=== PATIENT | female | born 1995 | race Caucasian/White ===

== ENCOUNTER 2025-07-26 18:41 | Inpatient (IN) ==
[2025-07-26] MEDS ORDERED: LIDOCAINE 1% LOCAL 20 ML VIAL INFIL PRN (20:40)
[2025-07-26] MEDS ORDERED: CALCIUM CARBONATE 500 MG CHEWABLE TAB PO PRN (20:40)
--- NOTE | 2025-07-26 20:40 | History & Physical Report ---
Date of Service July 26, 2025 Assessment & Plan (1) Normal labor: Present on Admission?: Yes (2) 39 weeks gestation of : Present on Admission?: Yes Plan Patient is a 30yo who is getting admitted for labor. Cervical change made to 4/75/-2 after 1 hour recheck; contractions getting more painful FHT reassuring Continue position changes Discussed AROM and pitocin augmentation if needed, deferred at this time Epidural PRN-pt declines for now GBS neg, Rh pos, RI Anticipate History of Present Illness Chief Complaint: Contractions Primary Care Provider: NATASHA Burr Patient is a 30yo at 39w3d who presents with contractions. [place] contractions since yesterday but got progressively closer together and stronger today. Feels them every 2-3 minutes. +FM. Denies LOF, VB. Denies complications with -just got Hep B vaccine series completed. Allergies Allergy/AdvReac Type Severity Reaction Status Date / Time No Known Allergies Allergy Verified 07/24/25 15:55 Home Medications Medication Instructions Recorded Confirmed Type loratadine 10 mg tablet (Claritin) 10 mg PO DAILY 02/27/24 07/26/25 History prenat.vits,fiordaliza,[id number] tab PO 12/19/24 07/24/25 History famotidine 20 mg tablet (Pepcid) 20 mg PO BID 07/10/25 07/26/25 History Patient History Surgical History No pertinent past surgical history Family History Grandfather (Maternal) Cancer Rheumatoid arthritis Grandfather (Paternal) Cancer Grandmother (Maternal) Diabetes Denies family history of Sudden SIDS (sudden infant syndrome) Ovarian cancer Prostate cancer Deep vein thrombosis Osteoporosis Coronary heart disease Dyslipidemia Cerebral aneurysm Alzheimer disease Bipolar disorder Clotting disorder Crohn's disease Dementia Depression Heart disease Kidney disease Myocardial infarction Osteoarthritis Breast cancer Schizophrenia Congenital kidney disease Gestational diabetes Lung cancer COPD (chronic obstructive pulmonary disease) Colorectal cancer Pulmonary embolism Lung disease Hypertension Ulcerative colitis Colonic polyp Stroke Asthma Cystic kidney disease Social History Smoking Status: Never smoker Second Hand Exposure: No; Hx Alcohol Use: No Hx Substance Use: No Preferred Language: Czech Communication Ability: Effective Visual Impairment: No Limitations Hearing Ability: Normal 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 Beliefs That Will Affect Care: None marital status: marital status details: aida (33) [phone] Current Living Situation: Spouse Current Living Situation Comment: lives with spouse, 2 cats, spouse to change litter current occupational status: employed current occupation: OT at [employer] How many Children do You have: 0 Other Information That Helps Us Care for You: No other: vocal disfunction Feels Safe at Home: Yes Safety Concerns: Feels Safe At This Time Childhood Exposure to Second-Hand Smoke: No Diet: regular caffeine: Yes during the past year weight has: remained stable Dental Care, Regularly: Yes Physical Activity Frequency: Daily Seatbelt Use: always Sunscreen Use: Yes Do you think of yourself as: straight/heterosexual Sexual Activity: has been sexually active within the last 12 months Gender Identity: Female Assistive Devices: None Review of Systems All systems reviewed & are unremarkable except as noted in HPI & below Physical Exam Constitutional: WD/WN, vitals as above Respiratory: normal respiratory effort Psychiatric: Orientation: alert and oriented x 3 Genitourinary: OB Exam Monitor Tracing: + external FHT monitor used, + external uterine monitor used (cxns q2-3min) and + category I (120s/mod kirby/+accels/no decels) RN exam- changed from 3/70/-2 to 4/75/-2 after 1 hour recheck Results & Data Vital Signs (Past 12 Hours) Vital Signs Temp Pulse Resp BP 07/26/25 20:23 36.4 C L 07/26/25 19:01 18 07/26/25 18:59 76 123/79 Coding Level of Care Code None Diagnoses Normal labor O80; Z37.9 39 weeks gestation of Z3A.39
[2025-07-26 22:01] LABS: Hematocrit (blood only) 32.3 % (37.0-47.0); Hemoglobin 11.4 g/dL (12.0-16.0); Mean Corpuscular Hemoglobin 30.8 pg (25.0-34.0); Mean Corpuscular Volume 87.3 fL (80.0-100.0); Platelet Count 266 K/uL (130-400); RDW Standard Deviation 38.5 fL (36.4-46.3); Red Blood Count 3.70 M/uL (4.20-5.40); White Blood Count 12.30 K/ul (4.8-10.8)
[2025-07-26] MEDS: LACTATED RINGER'S 1,000 ML IV PRN (22:50)
[2025-07-26] MEDS ORDERED: diphenhydrAMINE 50 MG/ML VIAL IV PRN (23:06)
[2025-07-26] MEDS ORDERED: ONDANSETRON INJ 2 MG/ML 2 ML VIAL IV PRN (23:06)
[2025-07-26] MEDS ORDERED: NALOXONE HCL 0.4 MG/1 ML VIAL/CARP IV PRN (23:06)
[2025-07-26] MEDS ORDERED: BUPIVACAINE 0.25% PF 30 ML VIAL EPI PRN (23:06)
[2025-07-26] MEDS ORDERED: NALOXONE HCL 1 MG in SODIUM CHLORIDE 0.9% 1,000 ML IV PRN (23:06)
[2025-07-26] MEDS ORDERED: NALBUPHINE HCL INJ 10 MG/ML AMP IV PRN (23:06)
[2025-07-26] MEDS ORDERED: LIDOCAINE 2% MPF LOCAL 5 ML VIAL EPI PRN (23:06)
[2025-07-26] MEDS ORDERED: fentANYL 2 MCG/ML BUPIVacaine 0.125%-NSS 100ML BAG EPI PRN (23:06)
[2025-07-26] MEDS ORDERED: ROPIVACAINE 0.5% PF 5 MG/ML 20 ML VIAL EPI PRN (23:06)
[2025-07-26] MEDS ORDERED: SODIUM CHLORIDE 0.9% PF INJ 10 ML VIAL EPI PRN (23:06)
--- NOTE | 2025-07-26 23:06 | Anesthesiology Consultation ---
Date of Service July 26, 2025 Assessment & Plan ASA ASA2 Proposed Anesthesia Anesthesia Type: Labor Epidural Risk / Benefits Reviewed With: PT / POA / Parent / Guardian, Accepts Plan and Informed Consent Obtained History Height/Weight Height: 5 ft 7 in Weight: 77.111 kg Allergies Allergy/AdvReac Type Severity Reaction Status Date / Time No Known Allergies Allergy Verified 07/24/25 15:55 Medications Home Medications Medication Instructions Recorded Confirmed Last Taken loratadine 10 mg tablet (Claritin) 10 mg PO DAILY 02/27/24 07/26/25 07/26/25 prenat.vits,fiordaliza,jfo-ipfw-czeiq tab PO 12/19/24 07/24/25 07/26/25 famotidine 20 mg tablet (Pepcid) 20 mg PO BID 07/10/25 07/26/25 07/26/25 Active Medications Generic Name Dose Route Start Last Admin Trade Name Freq PRN Reason Stop Dose Admin Lactated Ringer's 1,000 mls @ 125 mls/hr 07/26/25 20:40 07/26/25 23:35 Lr IV 07/28/25 20:39 125 mls/hr .Q8H PRN Infusion L&D Protocol Protocol Exercise / Class Metabolic Activity II 4-5 Yardwork/Stairs/Walk up hill Past Family History Family History Grandfather (Maternal) Cancer Rheumatoid arthritis Grandfather (Paternal) Cancer Grandmother (Maternal) Diabetes Denies family history of Sudden SIDS (sudden infant syndrome) Ovarian cancer Prostate cancer Deep vein thrombosis Osteoporosis Coronary heart disease Dyslipidemia Cerebral aneurysm Alzheimer disease Bipolar disorder Clotting disorder Crohn's disease Dementia Depression Heart disease Kidney disease Myocardial infarction Osteoarthritis Breast cancer Schizophrenia Congenital kidney disease Gestational diabetes Lung cancer COPD (chronic obstructive pulmonary disease) Colorectal cancer Pulmonary embolism Lung disease Hypertension Ulcerative colitis Colonic polyp Stroke Asthma Cystic kidney disease Past Surgical History Surgical History No pertinent past surgical history Past Anesthesia History No Hx of Anesthesia Complications and No Family Hx of Anesthesia Complications History of PONV No Hx of PONV and No Hx of Motion Sickness Social History Smoking Status: Never smoker Hx Alcohol Use: No Hx Substance Use: No Review of Systems denies fever/cough/ colds/ chest pain/ SOB/ JOVANY denies JOVANY Physical Exam Vital Signs Last Vital Signs Temp 36.4 C L 07/26/25 21:58 Pulse 85 07/26/25 23:45 Resp 18 07/26/25 23:31 BP 110/63 07/26/25 23:41 Pulse Ox 98 07/26/25 23:45 O2 Del Method Room Air 07/26/25 23:20 ENMT Mouth: no TMJ abnormality and no dentition abnormality Thyromental Distance: > or= 3.5 Finger Breadths Mallampati Class: II Neck neck extension not limited Respiratory normal respiratory effort; no respiratory distress Auscultation: lungs clear to auscultation bilaterally Cardiovascular Rate/Rhythm: regular rate and regular rhythm Neurologic moves all extremities Psychiatric Orientation: alert and oriented x 3 Testing Laboratory Results 07/26/25 21:13
[2025-07-26] MEDS: LIDOCAINE 2%/EPINEPHRINE 1:200,000 20 ML PF ONE (23:36)
[2025-07-26] MEDS: BUPIVACAINE 0.25% PF 30 ML VIAL ONE (23:36)
[2025-07-26] MEDS: fentANYL 2 MCG/ML BUPIVacaine 0.125%-NSS 100ML BAG ONE (23:36)
[2025-07-26] MEDS: BUPIVACAINE 0.25% PF 30 ML VIAL EPI STA (23:45)
[2025-07-26] MEDS: LIDOCAINE 2%/EPINEPHRINE 1:200,000 20 ML PF EPI STA (23:46)
[2025-07-26] MEDS: SODIUM CHLORIDE 0.9% PF INJ 10 ML VIAL EPI STA (23:46)
--- NOTE | 2025-07-27 00:28 | Labor Progress Brief Note ---
Date of Service July 27, 2025 Subjective Reason For Note: Routine Evaluation Doing well - comfortable now with epidural Review of Systems All systems reviewed & are unremarkable except as noted in HPI & below Assessment & Plan (1) Normal labor: (2) 39 weeks gestation of : Plan Patient is a 30yo who is admitted for labor. Continues to make cervical change FHT reassuring Continue position changes s/p AROM; pitocin augmentation if needed but deferred at this time s/p epidural Anticipate Admission and Anticipated Discharge Date Admission Date: July 26, 2025 Physical Exam Constitutional: WD/WN, vitals as above Respiratory: normal respiratory effort Psychiatric: Orientation: alert and oriented x 3 Genitourinary: Manual OB Exam: + cervical dilation 6 cm, + cervical effacement 90%, + station -1 and + amniotic fluid clear OB Exam Monitor Tracing: + external FHT monitor used, + external uterine monitor used (cxns q2-3min) and + category I (120s/mod kirby/+accels/no decels) AROM performed in normal sterile fashion with head well applied to cervix. Clear fluid noted. Pt tolerated well. Results & Data Vital Signs (Past 12 Hours) Vital Signs Temp Pulse Resp BP Pulse Ox Pulse Ox O2 Del Method 07/27/25 00:20 72 98 07/27/25 00:15 78 98 07/27/25 00:12 81 102/59 L 07/27/25 00:10 92 H 99 07/27/25 00:05 82 99 07/27/25 00:00 85 98 07/26/25 23:59 81 102/58 L 07/26/25 23:55 77 98 07/26/25 23:50 84 98 07/26/25 23:45 85 98 07/26/25 23:41 84 110/63 07/26/25 23:40 93 H 98 07/26/25 23:39 88 103/61 07/26/25 23:37 86 107/63 07/26/25 23:35 81 116/68 98 07/26/25 23:33 105 H 116/78 07/26/25 23:31 92 H 18 111/72 07/26/25 23:30 94 H 98 07/26/25 23:25 99 H 98 07/26/25 23:20 98 Room Air 07/26/25 23:20 119 H 99 07/26/25 21:58 36.4 C L 100 H 18 130/77 07/26/25 20:23 36.4 C L 07/26/25 19:01 18 07/26/25 18:59 76 123/79 Coding Level of Care Code None Diagnoses Normal labor O80; Z37.9 39 weeks gestation of Z3A.39
[2025-07-27] MEDS: SODIUM CHLORIDE 0.9% PF INJ 10 ML VIAL ONE (01:14)
[2025-07-27] MEDS: OXYTOCIN 30 UNITS/NSS 30 UNITS/500 ML BAG IV PRN (04:00)
--- NOTE | 2025-07-27 04:23 | Delivery Summary ---
Vaginal Delivery Summary Date of Service July 27, 2025 Vaginal Delivery Summary and 2nd Degree LAC Pre-delivery diagnoses: IUP at 39w4d, spontaneous labor Post-delivery diagnoses: Same Procedure: Spontaneous vaginal delivery Surgeon: Isabel Kaur MD Complications: none Findings: Viable female . Apgars: 8/9. Weight pending, please see nursery records Estimated QBL: 515 cc Description of delivery: The patient progressed to complete with epidural anesthesia. She then began to push. She spontaneously vaginally delivered a viable from the cephalic presentation. The head delivered followed without delay by anterior shoulder, posterior shoulder, then the body. No nuchal. The baby was placed on mother's abdomen and a spontaneous cry was heard. Delayed cord clamping was employed, and the cord was doubly clamped and cut. Cord blood was obtained. The placenta was delivered spontaneously intact with a 3-vessel cord. The uterus and vagina were swept of clots and debris. IV pitocin was given. The uterus became firm. The cervix, vagina, and perineum were inspected. Bilateral sulcal tears and 2nd degree perineal laceration repaired with 3-0 chromic under epidural anesthesia. Excellent hemostasis was observed. The mother and baby are recovering in stable and good condition in the room. Sponge, needle and instrument counts were correct x 2. [facility] Vaginal Delivery Charge Delivery Type Details: and 2nd Degree LAC
[2025-07-27] MEDS ORDERED: HYDROCORTISONE ACETATE 25 MG SUPP PR PRN (04:46)
[2025-07-27] MEDS ORDERED: OXYTOCIN 30 UNITS/NSS 30 UNITS/500 ML BAG IV PRN (04:46)
[2025-07-27] MEDS: DIPHTHER/TETAN/PERTUS Vaccine (Tdap, Adol/Adult) 0.5mL IM ONE (04:57)
[2025-07-27] MEDS: IBUPROFEN 600 MG TAB PO PRN (07:25)
[2025-07-27] MEDS: LORATADINE 10 MG TAB PO SCH (07:25)
[2025-07-27] MEDS: PRENATAL VITAMIN 1 TAB PO SCH (07:26)
[2025-07-27] MEDS: DOCUSATE SODIUM 100 MG CAP PO SCH (07:26)
[2025-07-27] MEDS: BENZOCAINE 20% SPRY 85 APPLN/85 GM CAN EXT PRN (10:44)
--- NOTE | 2025-07-27 13:41 | Anesthesia Procedure Note ---
Date of Service July 27, 2025 Anesthesia Post Epidural Note Vital Signs Vital Signs: Temp Pulse Resp BP Pulse Ox O2 Del Method 36.6 C 71 17 112/70 98 Room Air 07/27/25 11:22 07/27/25 11:22 07/27/25 11:22 07/27/25 11:22 07/27/25 11:22 07/27/25 11:22 Pain Intensity Lower Abdomen: Pain Intensity: 3 Notes Mental Status: alert / awake / arousable and participated in evaluation Nausea / Vomiting: adequately controlled Pain: adequately controlled Airway Patency, RR, SpO2: stable & adequate BP & HR: stable & adequate Hydration State: stable & adequate Neuraxial Anesthesia: was administered and sensory block is resolving Anesthetic Complications: no major complications apparent Epidural: Removed without complications and With tip intact
[2025-07-27] MEDS: LACTATED RINGER'S 1,000 ML IV SCH (20:01)
--- NOTE | 2025-07-28 06:30 | Obstetrical Progress Note ---
Date of Service July 28, 2025 Assessment & Plan (1) care and examination: Plan: 30yo post- day--1 s/p Fells well today Continue post- care Encourage ambulation and Pain controlled with Ibuprofen, Tylenol Vital Signs and Hgb stable Hopeful dc tomorrow Admission and Anticipated Discharge Date Admission Date: July 26, 2025 Supervising Physician Co-Signing Physician Notes Resident Physician Supervision Note: I interviewed and examined the patient. Discussed with Dr. Garcia and agree with findings and plan as documented in the note. Any exceptions or clarifications are listed here: PPD#1 from . Doing well, pain controlled. Meeting milestones. has been challenging. Uterus firm, trace bilateral LE edema. consultation today. Desires DC home tomorrow. Continue routine care. Documented By: Isabel Kaur MD Subjective 30yo post- day 1 s/p Ambulation: Ambulating normally Voiding: No voiding problems Passing Gas:: Yes Diet Tolerance:: regular diet Lochia:: Small Feeding Type:: Current Pain Level: described as crampy with Tylenol, Ibuprofen Resting comfortably this AM in NAD. Denies PAREDES, CP, SOB, N/V/D, LE pain/swelling. Physical Exam Physical Exam: As per Dr. Kaur Constitutional WD/WN, vitals as above Respiratory normal respiratory effort Gastrointestinal (Abdomen) Percussion/Palpation: abdomen nontender Psychiatric Orientation: alert and oriented x 3 Genitourinary uterus firm 1cm below umbilicus Results & Data Vital Signs (Past 12 Hours) Vital Signs Temp Pulse Resp BP Pulse Ox O2 Del Method 07/28/25 03:00 36.9 C 72 18 107/68 97 Room Air 07/27/25 23:00 37.0 C 73 18 99/62 L 98 Room Air 07/27/25 19:43 36.8 C 74 16 96/61 L 99 Room Air Resident Activity Tracking Resident Involvement: Resident Care Provided Care Provided: OB Delivery
--- NOTE | 2025-07-29 07:14 | Obstetrical Progress Note ---
Date of Service July 29, 2025 Assessment & Plan (1) care and examination: Plan: 30yo post- day--2 s/p Fells well today Continue post- care Encourage ambulation and Pain controlled with Ibuprofen Vital Signs and Hgb stable Discharge home. Follow up with OB provider in 6 weeks. Admission and Anticipated Discharge Date Admission Date: July 26, 2025 Subjective 30yo post- day 2 s/p Ambulation: Ambulating normally Voiding: No voiding problems Passing Gas:: Yes Diet Tolerance:: regular diet Lochia:: Small Feeding Type:: Current Pain Level: 4/10 with Ibuprofen Resting comfortably this AM in NAD. Denies PAREDES, CP, SOB, N/V/D, LE pain/swelling. Physical Exam Physical Exam: Constitutional WD/WN, vitals as above Respiratory normal respiratory effort Gastrointestinal (Abdomen) Percussion/Palpation: abdomen nontender Psychiatric Orientation: alert and oriented x 3 Genitourinary uterus firm 2cm below umbilicus Results & Data Vital Signs (Past 12 Hours) Vital Signs Temp Pulse Resp BP Pulse Ox O2 Del Method 07/28/25 23:35 36.9 C 70 18 103/66 97 Room Air 07/28/25 19:50 36.7 C 87 18 117/76 97 Room Air Resident Activity Tracking Resident Involvement: Resident Care Provided Care Provided: OB Delivery
[2025-07-29] MEDS: ACETAMINOPHEN 325 MG TAB PO PRN (07:55)
[2025-07-29 08:44] VITALS: BP 113/74; RESP 16; TEMP 98.1; O2SAT 98
[2025-07-29 08:58] VITALS: PULSE 82
== END 2025-07-29 10:50 | disposition home or self-care (01) | DRG 807 ==
LOC: OPB 18:41 → 4S1 18:43 → 4E2 07-27 06:39